=== PATIENT | male | born 1990 | race Two or more races ===

== ENCOUNTER 2018-02-06 15:48 | Emergency (ER) | payer BC ==
[~2018-02-06] VITALS: Ht 180.3 cm; Wt 73.5 kg
[2018-02-06 17:04] VITALS: BP 118/73
== END 2018-02-06 17:43 | disposition home or self-care (01) ==
LOC: ER 15:58
DX: S01.331A Puncture wound without foreign body of right ear, initial encounter (principal); Z88.8 Allergy status to other drugs, medicaments and biological substances; W22.8XXA Striking against or struck by other objects, initial encounter; Y93.89 Activity, other specified; Y92.89 Other specified places as the place of occurrence of the external cause; Y99.8 Other external cause status